=== PATIENT | male | born 1995 | race Caucasian/White ===

== ENCOUNTER 2024-02-23 16:14 | Emergency (ER) | payer MEDICAID ==
[~2024-02-23] VITALS: Ht 172.7 cm; Wt 104.0 kg
[2024-02-23 17:00] VITALS: BP 156/106; PULSE 84; RESP 18; TEMP 98.2; O2SAT 100
[2024-02-23] MEDS ORDERED: IBUP-2028 MT (18:42)
[2024-02-23] MEDS ORDERED: METH-653 MT (18:51)
== END 2024-02-23 18:56 | disposition home or self-care (01) ==
LOC: ER 16:14
DX: S40.811A Abrasion of right upper arm, initial encounter (principal); W18.30XA Fall on same level, unspecified, initial encounter; Y93.89 Activity, other specified; Y92.89 Other specified places as the place of occurrence of the external cause; Y99.8 Other external cause status
CPT/HCPCS: 73030; 73080; 73110; 99284